=== PATIENT | female | born 1945 | race Caucasian/White ===

== ENCOUNTER → 2017-01-29 | Outpatient (CLI) | payer MEDICARE, OTHER ==
--- NOTE | 2017-01-30 08:00 | PCVCIMAG ---
EXAM: BILATERAL LOWER EXTREMITY ARTERIAL DUPLEX INDICATION: Peripheral Arterial Disease. Leg pain. Lower leg and foot ulcers. Ulcer plantar aspect right foot. FINDINGS: Right Leg: Satisfactory arterial waveforms in the common femoral and profunda femoral artery. Increased systolic velocity of 311 cm/s in the distal superficial femoral artery consistent with 80% stenosis. Increased velocity to 303 cm/s in the distal popliteal artery consistent with 70% stenosis. Occlusion throughout the posterior tibial artery and the proximal portion of the anterior tibial artery. The peroneal artery is patent. Left Leg: Satisfactory arterial waveforms in the common femoral profunda femoral artery. Increased velocity mid and distal superficial femoral artery as much as 471 cm/s consistent with 90% stenosis. The popliteal artery is patent. The anterior tibial artery is patent. The peroneal artery is occluded proximally and the posterior tibial artery is occluded throughout its length. IMPRESSION: 80% stenosis distal right superficial femoral artery. 70% stenosis distal right popliteal artery. Occlusion of the right posterior tibial artery and proximal right anterior tibial artery. 90% stenosis in the mid and distal left superficial femoral artery. Occlusion of the proximal left peroneal artery and throughout the left posterior tibial artery. LOC:[id number]
== END | disposition home or self-care (01) ==
LOC: PCVCIMAG 15:53
PROVIDERS: ATTEND Nuclear Medicine Nuclear Cardiology
DX: I70.202 Unspecified atherosclerosis of native arteries of extremities, left leg (principal); I70.291 Other atherosclerosis of native arteries of extremities, right leg; I77.1 Stricture of artery; J44.9 Chronic obstructive pulmonary disease, unspecified; I25.2 Old myocardial infarction; N18.6 End stage renal disease; L97.929 Non-pressure chronic ulcer of unspecified part of left lower leg with unspecified severity; L97.919 Non-pressure chronic ulcer of unspecified part of right lower leg with unspecified severity; Z87.891 Personal history of nicotine dependence
CPT/HCPCS: 93925

== ENCOUNTER → 2017-02-18 | Outpatient (CLI) | payer MEDICARE, OTHER ==
[~2017-02-18] MED LIST: DIAZEPAM 10 MG TABLET. ONE; EPTIFIBATIDE BOLUS 2,000 MCG/ML 10ML VIAL. IV ONE; HEPARIN SODIUM 5,000 UNIT/ML VIAL for PCVC. ONE; IODIXANOL 270 MG/ML 100 ML VIAL. ONE; IV NORMAL SALINE 1000ML BAG 1,000 ML ONE; IV NORMAL SALINE 500ML BAG 500 ML ONE; LIDOCAINE 1% Multi-Dose 20 ML VIAL. ONE; LIDOCAINE 1%/EPI 1:100,000 20 ML VIAL. ONE; MIDAZOLAM HCL/PF 2 MG/2 ML VIAL. ONE; fentaNYL PF VIAL 100 MCG/2 ML VIAL ONE; hydrALAZINE 20 MG/ML VIAL. ONE
--- NOTE | 2017-02-18 14:07 | PCVCINTER ---
EXAM: 1. AORTOGRAM AND BILATERAL LOWER EXTREMITY RUNOFF ANGIOGRAM 2. RIGHT ANTERIOR TIBIAL ARTERY ATHERECTOMY. 3. SECONDARY THROMBECTOMY RIGHT ANTERIOR TIBIAL ARTERY. 4. RIGHT TIBIOPERONEAL TRUNK ANGIOPLASTY 5. RIGHT POPLITEAL ARTERY ATHERECTOMY AND DRUG COATED BALLOON ANGIOPLASTY 6. RIGHT SUPERFICIAL FEMORAL ARTERY ATHERECTOMY AND DRUG COATED BALLOON ANGIOPLASTY. INDICATION: Peripheral arterial disease. Coronary artery disease. Nonhealing ulcer right lower extremity. Hypertension. Renal atherosclerosis. PROCEDURE: Procedure and risks of angiography intervention is appropriate including limb loss stroke and were discussed with the patient's family and consent obtained. The patient's left groin was prepped abnormal sterile fashion. IV conscious sedation was used to procedure with appropriate monitoring from 11:00 AM through 12:30 PM. Ultrasound was used to interrogate the left groin and showed the left common femoral artery to be patent. A permanent spot film was obtained. Under ultrasound guidance access into the left common femoral artery was obtained and a 5 Nicaraguan sheath was placed. Through this a 5 Nicaraguan flush catheter was placed into the abdominal aorta at the level of the renal arteries and AP aortogram was performed. Catheter was positioned at the aortic bifurcation and both oblique views of the pelvis were obtained. Catheter was positioned into the left external iliac artery and left leg runoff angiography was performed. Catheter was exchanged for a visceral catheter was placed into the right renal arteries and right renal angiograms obtained. Catheter was placed into the the left renal arteries and left renal angiograms were obtained. Catheter was advanced to the level of the right external iliac artery and right leg runoff angiography was obtained. Patient was given 4500 units of heparin. A 6 Nicaraguan crossover sheath was placed via the left groin to the level of the right common femoral artery. Atherectomy of the right superficial femoral artery and popliteal artery was performed with 0.9 mm Spectranetics laser atherectomy catheter in the standard fashion. Atherectomy of the right anterior tibial artery was performed with 0.9 mm Spectranetics laser atherectomy catheter in the standard fashion. Following atherectomy small areas of thrombus were observed and because of this secondary thrombectomy throughout the right anterior tibial artery was carried out with mechanical suction thrombectomy catheter in the standard fashion. Minimal debris was removed. Angioplasty in the proximal right anterior tibial artery was performed with a 3.5 Angiosculpt MARINE EQUIPMENT RESEARCH ENGINEER catheter. Angioplasty in the right tibioperoneal trunk was performed with a 3.5 mm Angiosculpt MARINE EQUIPMENT RESEARCH ENGINEER catheter. Following this drug coated balloon angioplasty of the right popliteal artery was carried out with a 5.0 x 120 Spectranetics Steller X MARINE EQUIPMENT RESEARCH ENGINEER catheter. Following this drug coated balloon angioplasty of the right superficial femoral artery was carried out with a 6 x 40 Spectranetics Celebrex MARINE EQUIPMENT RESEARCH ENGINEER catheter. Follow-up angiogram was performed. Catheters and wires removed. Sheath was removed and hemostasis obtained using the FISH device. No immediate complications. FINDINGS: Aortogram: There is one right and one left renal artery both of which show poor intrarenal flow consistent with patient's chronic renal failure. Moderate plaque infrarenal abdominal aorta without significant stenosis. Pelvis: The right left common iliac and right left external iliac arteries are patent. Both internal iliac arteries are patent. The right and left common femoral and profunda femoral arteries are patent. Right le% stenosis due to calcific plaque distal superficial femoral artery. 75% stenosis mid popliteal artery and upper popliteal artery. 80% stenosis proximal anterior tibial artery which is the dominant runoff vessel. This vessel then shows good patency into the dorsalis pedis and plantar arch. Moderate stenosis right tibioperoneal trunk. The posterior tibial artery is occluded throughout. Left le% focal stenosis mid upper superficial femoral artery and 90% focal stenosis distal superficial femoral artery. The popliteal artery is patent. There is occlusion throughout the posterior tibial artery. 50% stenosis proximal anterior tibial artery with the anterior tibial artery being the dominant runoff vessel to refill the dorsalis pedis and plantar arch. Right superficial femoral artery: Following procedure as above vessel shows good patency. Right popliteal artery: Following procedure as above vessel shows good patency. Right anterior tibial artery: Following procedure as above vessel shows good patency. Right tibioperoneal trunk: Following procedure as above vessel shows good patency. IMPRESSION: There is a significant stenosis involving the right superficial femoral artery, right popliteal artery, right anterior tibial artery, and right tibioperoneal trunk were treated as above with satisfactory patency restored. Occlusion of the right and left posterior tibial arteries bilaterally. impression follow up LOC:[id number]
== END | disposition home or self-care (01) ==
LOC: PCVCINTER 09:23
PROVIDERS: ATTEND Nuclear Medicine Nuclear Cardiology
DX: I70.202 Unspecified atherosclerosis of native arteries of extremities, left leg (principal); I70.1 Atherosclerosis of renal artery; I25.10 Atherosclerotic heart disease of native coronary artery without angina pectoris; L97.919 Non-pressure chronic ulcer of unspecified part of right lower leg with unspecified severity; I13.10 Hypertensive heart and chronic kidney disease without heart failure, with stage 1 through stage 4 chronic kidney disease, or unspecified chronic kidney disease; J44.9 Chronic obstructive pulmonary disease, unspecified; N18.6 End stage renal disease; I25.2 Old myocardial infarction; Z87.891 Personal history of nicotine dependence
CPT/HCPCS: 37186; 37225; 37229; 75716; 76937; 99152; 99153; J0690; J1327; J1644; J2250; J3010; J3490; J7030; J7040; Q9966; 37228; C1725; C1751; C1757; C1760; C1769; C1885; C1894; J0360

== ENCOUNTER → 2017-03-20 | Outpatient (CLI) | payer MEDICARE, OTHER ==
[~2017-03-20] MED LIST changes: -IV NORMAL SALINE 500ML BAG 500 ML ONE; -LIDOCAINE 1%/EPI 1:100,000 20 ML VIAL. ONE
--- NOTE | 2017-03-20 12:20 | PCVCINTER ---
EXAM: 1. LEFT SUPERFICIAL FEMORAL ARTERY ATHERECTOMY AND STENT PLACEMENT. 2. SECONDARY THROMBECTOMY LEFT SUPERFICIAL FEMORAL ARTERY. 3. DRUG COATED BALLOON ANGIOPLASTY LEFT FACIAL FEMORAL ARTERY. INDICATION: Peripheral arterial disease. Coronary artery disease. Left leg pain. Hypertension. Renal atherosclerosis. PROCEDURE: Procedure and risks of angiography intervention is appropriate including limb loss stroke and were discussed with the patient's family and consent obtained. The patient's right groin was prepped abnormal sterile fashion. IV conscious sedation was used to procedure with appropriate monitoring from 10:30 AM through 11:30 AM. Ultrasound was used to interrogate the right groin and showed the right common femoral artery to be patent. A permanent spot film was obtained. Under ultrasound guidance access into the right common femoral artery was obtained and a 6 Maltese crossover sheath was placed via the right groin to the level of the left common femoral artery. Patient was given 4500 units of heparin. Atherectomy of the left superficial femoral artery was performed with 2.0 mm [employer] laser atherectomy catheter in the standard fashion. Following atherectomy small areas of thrombus were observed and because of this secondary thrombectomy throughout the left superficial femoral artery was carried out with mechanical suction thrombectomy catheter in the standard fashion. Minimal debris was removed. Stent placement across the areas of high-grade stenosis in the left superficial femoral artery was carried out with a 8 x 30 Smart control stent distally and 8 x 60 Smart control stent proximally with subsequent dilatation to 6.0 mm. Following this drug coated balloon angioplasty of the left superficial femoral artery was carried out with a 6 x 40 Spectranetics Stelle herberth COIN MACHINE MECHANIC catheter distally and 6 x 80 Spectranetics Stelle herberth COIN MACHINE MECHANIC catheter. Follow-up angiogram was performed. Catheters and wires removed. Sheath was removed and hemostasis obtained using the FISH device. No immediate complications. FINDINGS: Left superficial femoral artery: Following procedure as above vessel shows good patency. IMPRESSION: Areas of high-grade stenosis in the upper and lower left superficial femoral artery were treated as above with good patency restored. LOC:[id number]
== END | disposition home or self-care (01) ==
LOC: PCVCINTER 09:18
PROVIDERS: ATTEND Nuclear Medicine Nuclear Cardiology
DX: I70.212 Atherosclerosis of native arteries of extremities with intermittent claudication, left leg (principal); I25.10 Atherosclerotic heart disease of native coronary artery without angina pectoris; I10 Essential (primary) hypertension; I70.1 Atherosclerosis of renal artery
CPT/HCPCS: 37186; 37227; 76937; 99152; 99153; C1725; C1751; C1757; C1760; C1769; C1876; C1885; C1887; C1894; C2623; J0690; J1644; J2250; J3010; J7030; J0360; J1327